=== PATIENT | female | born 1985 | race Caucasian/White ===

== ENCOUNTER 2019-04-29 06:09 | Day surgery (SDC) | payer BC ==
[2019-04-27 14:51] VITALS: BMI 28.1
[2019-04-29] MEDS ORDERED: MIDAZOLAM HCL 2 MG/2 ML SINGLE DOSE VIAL ONE ×2 (08:36)
[2019-04-29] MEDS ORDERED: PROPOFOL 20 ML ONE (08:40)
[2019-04-29] MEDS ORDERED: LIDOCAINE HCL 1% PRESERVATIVE FREE - 30ML VIAL IJ ONE (08:45)
[2019-04-29] MEDS ORDERED: BUPIVACAINE HCL/PF 0.25% (2.5MG/ML) 10 ML VIAL IJ ONE (08:45)
[2019-04-29] MEDS ORDERED: methylPREDNISolone ACET (DEPO) 80 MG/1 ML VIAL IJ ONE (08:45)
--- NOTE | 2019-04-29 09:35 | OP ---
DATE OF OPERATION: 04/29/2019 PREOPERATIVE DIAGNOSIS: C4-C5 disc disease with neck pain and cervical radiculopathy. POSTOPERATIVE DIAGNOSIS: C4-C5 disc disease with neck pain and cervical radiculopathy. ATTENDING SURGEON: Ascencion Monroe MD PROCEDURE: 1. Right C4-C5 epidural steroid injection. 2. Intraoperative fluoroscopy. ANESTHESIA: Local with IV sedation. ANESTHESIOLOGIST: Amber Garcia MD INDICATIONS: The patient is a 33-year-old female with neck pain and cervical radiculopathy. Because of intractable symptoms and failure of conservative treatment, she is here for her first cervical epidural steroid injection. The risks of the procedure include, but are not limited to, bleeding, infection, spinal headache, neurological injury, and paralysis. The patient understands the indications for the procedure, the procedure in detail, risks and benefits, and alternative treatments for her cervical spine condition, and she wishes to proceed with the procedure. No guarantees were given for a favorable outcome. PROCEDURE IN DETAIL: After the patient was taken to the operating room, she was placed in the prone position with pillow under her chin. Neck was placed in a slightly flexed position. Arms were tucked on her sides. Posterior cervical region cleaned with alcohol and prepped with Betadine. A skin wheal was raised with 5 mL of 1% Xylocaine, and a 22-gauge spinal needle was inserted under AP and lateral fluoroscopic guidance from a right-sided approach to C4-C5 facet. The needle was then marched medially towards the lateral recess. Loss of resistance technique was utilized. There was no CSF or blood backflow. Depo-Medrol 80 mg and 1 mL of 0.25% Marcaine were injected, and the needle was withdrawn and sterile bandage was applied. The procedure was done with AP then lateral fluoroscopic guidance. The patient was able to move bilateral upper and lower extremities well. She did not complain of headache after the injection. ASCENCION MONROE M.D. [id number]
[2019-04-29 10:36] VITALS: BP 95/61; PULSE 69; TEMP 98.3
== END 2019-04-29 10:50 | disposition home or self-care (01) ==
LOC: JASU-SURG 06:09
PROVIDERS: ATTEND Neurological Surgery
PROC: 3E0R3BZ Introduction of Anesthetic Agent into Spinal Canal, Percutaneous Approach (ICD-10-PCS; 2019-04-29)
PROC: B01BZZZ Fluoroscopy of Spinal Cord (ICD-10-PCS; 2019-04-29)
PROC: 3E0R33Z Introduction of Anti-inflammatory into Spinal Canal, Percutaneous Approach (ICD-10-PCS; principal; 2019-04-29 08:00)
DX: M50.921 Unspecified cervical disc disorder at C4-C5 level (principal); M54.2 Cervicalgia; M54.12 Radiculopathy, cervical region
CPT/HCPCS: 76000-TC-FY; 84703